=== PATIENT | female | born 1985 | race African-American/Black ===

== ENCOUNTER 2016-10-01 15:57 | Emergency (ER) | payer SELFPAY ==
[2016-10-01] MEDS ORDERED: ED CLINDAMYCIN PREMIX 50 ML IV ONE (17:21)
[2016-10-01] MEDS ORDERED: DILAUDID 1 MG/ML AMP ONE (17:21)
[2016-10-01] MEDS ORDERED: ONDANSETRON 4 MG VIAL ONE (17:22)
== END 2016-10-01 18:30 | disposition home or self-care (01) ==
LOC: ER 15:57
DX: K04.7 Periapical abscess without sinus (principal)
CPT/HCPCS: 96365; 96375